=== PATIENT | male | born 1990 | race Caucasian/White ===

== ENCOUNTER 2017-03-10 20:14 | Emergency (ER) | payer BC ==
[2017-03-10] MEDS ORDERED: KETOROLAC 30 MG/ML 1 ML VIAL IVP STA (21:02)
[2017-03-10] MEDS ORDERED: SODIUM CHLORIDE 0.9% 500 ML IV STA (21:02)
--- NOTE | 2017-03-10 21:10 | ED ---
General Adult HPI - General Chief complaint: Back Pain/Injury Stated complaint: kidney pain Time Seen by Provider: 03/10/17 20:37 Source: patient Mode of arrival: ambulatory Limitations: no limitations - History of Present Illness Initial comments: 27-year-old male patient presents to emergency department today for evaluation of right flank pain. Patient states that around 2 PM this afternoon he had onset of sharp stabbing pain to the right flank area, patient states that the pain is intermittent, states that it worsens with deep breathing and cough. Patient states that he has had upper respiratory symptoms for the last few days , including a productive cough, states sputum is clear. Patient denies any fever or chills. Patient denies any abdominal pain, nausea, vomiting, hematuria , dysuria, urinary frequency or urinary urgency. She denies any constipation, diarrhea, dizziness, weakness, dark, bloody, or black stools. Patient does have a history of spontaneous pneumothorax . A few yars ago. - Related Data Home Medications Medication Instructions Recorded Confirmed methylPREDNISolone Dose Pack See Taper PO DAILY 03/10/17 03/10/17 [Medrol Dose Pack] Previous Rx's Medication Instructions Recorded Azithromycin [Zithromax Z-pack] 0 mg PO DIRECTED #6 tab 03/10/17 Allergies Allergy/AdvReac Type Severity Reaction Status Date / Time No Known Allergies Allergy Verified 03/10/17 20:42 Review of Systems ROS Statement: Those systems with pertinent positive or pertinent negative responses have been documented in the HPI. ROS Other: All systems not noted in ROS Statement are negative. Past Medical History Additional Past Medical History / Comment(s): pneumothorax History of Any Multi-Drug Resistant Organisms: None Reported Past Surgical History: No Surgical Hx Reported Past Psychological History: No Psychological Hx Reported Smoking Status: Never smoker Past Alcohol Use History: None Reported Past Drug Use History: None Reported General Exam Limitations: no limitations General appearance: alert, in no apparent distress Eye exam: Present: normal appearance, PERRL, EOMI. Absent: scleral icterus, conjunctival injection, periorbital swelling ENT exam: Present: normal exam, mucous membranes moist Neck exam: Present: normal inspection. Absent: tenderness, meningismus, lymphadenopathy Respiratory exam: Present: normal lung sounds bilaterally. Absent: respiratory distress, wheezes, rales, rhonchi, stridor Cardiovascular Exam: Present: regular rate, normal rhythm, normal heart sounds. Absent: systolic murmur, diastolic murmur, rubs, gallop, clicks GI/Abdominal exam: Present: soft, normal bowel sounds. Absent: distended, tenderness, guarding, rebound, rigid Extremities exam: Present: normal inspection, full ROM, normal capillary refill. Absent: tenderness, pedal edema, joint swelling, calf tenderness Back exam: Present: normal inspection, full ROM. Absent: tenderness, CVA tenderness (R), CVA tenderness (L) Neurological exam: Present: alert, oriented X3, CN II-XII intact Psychiatric exam: Present: normal affect, normal mood Skin exam: Present: warm, dry, intact, normal color. Absent: rash Course Vital Signs 03/10/17 20:21 Temperature 98.6 F Pulse Rate 81 Respiratory 20 Rate Blood Pressure 142/78 O2 Sat by Pulse 98 Oximetry - Reevaluation(s) Reevaluation #1: 03/10/17 22:27 Into speak with patient. States that pain is somewhat better specialize lying down. Did discuss lab work and x-ray findings with patient. Also discussed risk per versus benefits of obtaining a computed tomography scan to rule out kidney stone. Patient verbalizes understanding and agrees to have scan done. Medical Decision Making - Medical Decision Making 27-year-old male patient presented to emergency department with complaints of right flank pain and upper respiratory symptoms. Lab work was performed and was within normal limits other than elevated white blood cell count. She did have a CT of the abdomen and pelvis which was normal. Patient be discharged home with a prescription for azithromycin for the upper respiratory infection and white blood cell count. Patient shuttered pop his primary care physician in one to 2 days for recheck. Patient and shortage return for any new, worsening, or concerning symptoms. Patient verbalizes understanding and agrees with this plan. - Lab Data Result diagrams: 03/10/17 21:25 03/10/17 21:25 Lab Results 03/10/17 03/10/17 03/10/17 Range/Units 21:25 21:25 21:25 WBC 13.1 H (3.8-10.6) k/uL RBC 5.16 (4.30-5.90) m/uL Hgb 15.1 (13.0-17.5) gm/dL Hct 44.7 (39.0-53.0) % MCV 86.5 (80.0-100.0) fL MCH 29.2 (25.0-35.0) pg MCHC 33.8 (31.0-37.0) g/dL RDW 14.3 (11.5-15.5) % Plt Count 246 (150-450) k/uL Neutrophils % 72 % Lymphocytes % 21 % Monocytes % 4 % Eosinophils % 1 % Basophils % 0 % Neutrophils # 9.4 H (1.3-7.7) k/uL Lymphocytes # 2.8 (1.0-4.8) k/uL Monocytes # 0.5 (0-1.0) k/uL Eosinophils # 0.1 (0-0.7) k/uL Basophils # 0.1 (0-0.2) k/uL Sodium 141 (137-145) mmol/L Potassium 3.6 (3.5-5.1) mmol/L Chloride 103 (98-107) mmol/L Carbon Dioxide 26 (22-30) mmol/L Anion Gap 12 mmol/L BUN 21 H (9-20) mg/dL Creatinine 1.04 (0.66-1.25) mg/dL Est GFR (MDRD) Af Amer >60 (>60 ml/min/1.73 sqM) Est GFR (MDRD) Non-Af >60 (>60 ml/min/1.73 sqM) Glucose 112 H (74-99) mg/dL Calcium 9.8 (8.4-10.2) mg/dL Total Bilirubin 0.7 (0.2-1.3) mg/dL AST 27 (17-59) U/L ALT 70 (21-72) U/L Alkaline Phosphatase 55 (38-126) U/L Total Protein 7.8 (6.3-8.2) g/dL Albumin 4.8 (3.5-5.0) g/dL Urine Color Yellow Urine Appearance Clear (Clear) Urine pH 6.0 (5.0-8.0) Ur Specific [place] 1.022 (1.001-1.035) Urine Protein Negative (Negative) Urine Glucose (UA) Negative (Negative) Urine Ketones Negative (Negative) Urine Blood Negative (Negative) Urine Nitrite Negative (Negative) Urine Bilirubin Negative (Negative) Urine Urobilinogen <2.0 (<2.0) mg/dL Ur Leukocyte Esterase Negative (Negative) - Radiology Data Radiology results: report reviewed, image reviewed Abdomen pelvis CT reviewed. Impression by Dr. Olmos reveals no acute findings on noncontrast imaging. Suggestion of possible mild hepatic steatosis. Two-view chest x-ray reveals heart and mediastinum are normal. Lungs are clear. Diaphragm is normal. Bony thorax and soft tissues appear normal. Impression by Dr. [place] is a normal chest. Disposition Clinical Impression: Upper respiratory infection, Back pain Disposition: HOME SELF-CARE Instructions: Upper Respiratory Infection (ED), Flank Pain (ED) Additional Instructions: Increase fluids. Follow up primary care physician one to 2 days for recheck. Return for any new, worsening, or concerning symptoms. Prescriptions: Azithromycin [Zithromax Z-pack] 0 mg PO DIRECTED #6 tab Referrals: None,Stated [Primary Care Provider] - 1-2 days Time of Disposition: 23:47
[2017-03-10 21:40] LABS: Appearance,Urine Clear (Clear); Bilirubin,Urine Negative (Negative); Glucose,Urine (UA) Negative (Negative); Ketones,Urine Negative (Negative); Leukocyte Esterase,Urine Negative (Negative); Nitrite,Urine Negative (Negative); Protein,Urine Negative (Negative); Specific Gravity,Urine 1.022 (1.001-1.035); UA Billing (MACRO vs. MICRO) CHEM; Urobilinogen,Urine <2.0 mg/dL (<2.0)
[2017-03-10 21:41] LABS: Basophils # (A) 0.1 k/uL (0-0.2); Basophils % (A) 0 %; CHCM 34.9; Eosinophils # (A) 0.1 k/uL (0-0.7); Eosinophils % (A) 1 %; HCT 44.7 % (39.0-53.0); HDW 2.73; HGB 15.1 gm/dL (13.0-17.5); Luc # (Auto) 0.19; Luc % (Auto) 2; Lymphocytes # (A) 2.8 k/uL (1.0-4.8); Lymphocytes % (A) 21 %; MCH 29.2 pg (25.0-35.0); MCHC 33.8 g/dL (31.0-37.0); MCV 86.5 fL (80.0-100.0); Mean Platelet Volume 7.8; Monocytes # (A) 0.5 k/uL (0-1.0); Monocytes % (A) 4 %; Neutrophils # (A) 9.4 k/uL (1.3-7.7); Neutrophils % (A) 72 %; RBC 5.16 m/uL (4.30-5.90); RDW 14.3 % (11.5-15.5); WBC 13.1 k/uL (3.8-10.6); WBC (Perox) 12.11
--- NOTE | 2017-03-10 21:57 | XR ---
EXAMINATION TYPE: XR chest 2V DATE OF EXAM: 03/10/2017 COMPARISON: NONE HISTORY: Back pain TECHNIQUE: Frontal and lateral views of the chest are obtained. FINDINGS: Heart and mediastinum are normal. Lungs are clear. Diaphragm is normal. Bony thorax and so ft tissues appear normal. IMPRESSION: Normal chest
[2017-03-10 21:58] LABS: ALT 70 U/L (21-72); AST 27 U/L (17-59); Alkaline Phosphatase 55 U/L (38-126); Anion Gap 12 mmol/L; Blood Urea Nitrogen 21 mg/dL (9-20); Calcium 9.8 mg/dL (8.4-10.2); Carbon Dioxide 26 mmol/L (22-30); Chloride 103 mmol/L (98-107); Glucose 112 mg/dL (74-99); Non-African American GFR(MDRD) >60 (>60 ml/min/1.73 sqM); Potassium 3.6 mmol/L (3.5-5.1); Sodium 141 mmol/L (137-145); Total Bilirubin 0.7 mg/dL (0.2-1.3); Total Protein 7.8 g/dL (6.3-8.2)
--- NOTE | 2017-03-10 23:03 | CT ---
EXAM: CT Abdomen and Pelvis Without Intravenous Contrast CLINICAL HISTORY: Reason: Right-sided flank pain. TECHNIQUE: Axial computed tomography images of the abdomen and pelvis without intravenous contrast. CTDI is 7.0 mGy and DLP is 385.60 mGy-cm. This CT exam was performed using one or more of the following dose reduction techniques: automated exposure control, adjustment of the mA and/or kV according to patient size, and/or use of iterative reconstruction technique. COMPARISON: None. FINDINGS: Lower thorax: No acute findings. ABDOMEN: Liver: Suggestion of possible mild hepatic steatosis. Gallbladder and bile ducts: Gallbladder is contracted, otherwise unremarkable. No calcified stones. No ductal dilation. Pancreas: Unremarkable. No ductal dilation. Spleen: Unremarkable. No splenomegaly. Adrenals: Unremarkable. No mass. Kidneys and ureters: Unremarkable. No stones. No hydronephrosis. Stomach and bowel: Unremarkable. No obstruction. No mucosal thickening. Appendix: Appendix is normal. PELVIS: Bladder: Unremarkable. No stones. Reproductive: Unremarkable as visualized. ABDOMEN and PELVIS: Intraperitoneal space: Unremarkable. No free air. No significant fluid collection. Bones/joints: No acute fracture. No dislocation. Soft tissues: Unremarkable. Vasculature: Unremarkable. No abdominal aortic aneurysm. Lymph nodes: Unremarkable. No enlarged lymph nodes. IMPRESSION: No acute findings on noncontrast imaging. Suggestion of possible mild hepatic steatosis.
[2017-03-11 00:09] VITALS: BP 142/72; PULSE 80; RESP 16; TEMP 98.2
== END 2017-03-11 00:05 | disposition home or self-care (01) ==
LOC: EC 20:14
DX: J06.9 Acute upper respiratory infection, unspecified (principal); M54.9 Dorsalgia, unspecified; Z79.899 Other long term (current) drug therapy
CPT/HCPCS: 99284; 96374; 96361 ×3; 36415; 80053; 85025; 81003; 71020; 74176; J1885